=== PATIENT | female | born 1995 | race Caucasian/White ===

== ENCOUNTER 2018-04-18 01:55 | Emergency (ER) | payer SELFPAY ==
[~2018-04-18] VITALS: Ht 162.6 cm; Wt 104.5 kg
[2018-04-18 02:04] VITALS: BP 143/85; Ht 162.6 cm; Wt 104.5 kg
== END 2018-04-18 03:59 | disposition left against medical advice (07) ==
LOC: D.ER 01:55
DX: K08.89 Other specified disorders of teeth and supporting structures (principal)